=== PATIENT | female | born 1980 | race African-American/Black ===

== ENCOUNTER → 2020-09-24 | Outpatient (CLI) | payer OTHER | LOC: RAD 14:59 | PROVIDERS: ATTEND Family Medicine | DX: M79.89 Other specified soft tissue disorders (principal) ==

== ENCOUNTER 2020-12-26 16:50 | Emergency (ER) | payer OTHER ==
[~2020-12-26] VITALS: Ht 162.6 cm; Wt 104.3 kg
[2020-12-26] MEDS ORDERED: OMEPRAZOLE40 MG PO (17:23)
[2020-12-26] MEDS ORDERED: VITAMIN D21250 MCG PO (17:24)
[2020-12-26] MEDS ORDERED: PROAIR HFA8.5 GM INH (17:24)
[2020-12-26] MEDS ORDERED: ALPRAZOLAM 0.0.25 M1 PO (17:24)
[2020-12-26] MEDS ORDERED: FLUOXETINE HCL40 MG PO (17:24)
[2020-12-26 17:40] LABS: URINE BILIRUBIN NEGATIVE (Negative); URINE BLOOD 3+ (Negative); URINE CLARITY CLEAR; URINE COLOR YELLOW; URINE GLUCOSE-RANDOM* NEGATIVE (Negative); URINE KETONES NEGATIVE (Negative); URINE LEUKOCYTES-REFLEX NEGATIVE (Negative); URINE NITRITE-REFLEX NEGATIVE (Negative); URINE PROTEIN (DIPSTICK) NEGATIVE (Negative); URINE UROBILINOGEN 0.2 E.U./dl (0.2-1.0)
[2020-12-26 17:50] LABS: CASTS None Seen /LPF (None Seen); SQUAMOUS 4-10 Moderate /LPF (0-3)
[2020-12-26 17:51] LABS: BACTERIA-REFLEX None Seen /HPF (None Seen); CRYSTALS None Seen /LPF (None Seen); URINE RBC 3-10 Few /HPF (NONE SEEN); URINE WBC-REFLEX 0-5 Rare /HPF (0-5)
[2020-12-26 18:27] LABS: ABSOLUTE NEUTROPHILS 3.2 thou/uL (1.4-8.2); EOSINOPHILS 2.8 % (0.0-3.0); HEMATOCRIT 33.2 % (37.0-47.0); HEMOGLOBIN 11.5 gm/dL (12.0-15.0); MCH 36.5 pg (26.0-34.0); MCHC 34.6 g/dL (28.0-37.0); MCV 105.3 fL (80.0-100.0); MONOCYTES 10.9 % (1.0-8.0); PLATELET COUNT 291 thou/uL (150-400); POLYS 52.3 % (36.0-66.0); RBC 3.15 mil/uL (4.20-5.00); WBC 6.2 thou/uL (4.0-11.0)
[2020-12-26 18:47] LABS: CALCIUM 8.7 mg/dL (8.5-10.1); POTASSIUM 3.6 mmol/L (3.5-5.1)
[2020-12-26] MEDS ORDERED: FEOSOL325 M1 PO (18:51)
[2020-12-26 18:53] LABS: ALBUMIN 3.4 g/dL (3.4-5.0); TOTAL BILIRUBIN 0.5 mg/dL (0.2-1.0); TOTAL PROTEIN 7.1 g/dL (6.4-8.2)
[2020-12-26 20:56] VITALS: BP 142/93
== END 2020-12-26 20:57 | disposition home or self-care (01) ==
LOC: ER 16:50
PROVIDERS: Physician Assistant
DX: N93.9 Abnormal uterine and vaginal bleeding, unspecified (principal); D64.9 Anemia, unspecified; J45.909 Unspecified asthma, uncomplicated; F41.9 Anxiety disorder, unspecified; F32.9 Major depressive disorder, single episode, unspecified; K21.9 Gastro-esophageal reflux disease without esophagitis; Z79.51 Long term (current) use of inhaled steroids; Z79.1 Long term (current) use of non-steroidal anti-inflammatories (NSAID); Z79.891 Long term (current) use of opiate analgesic; Z79.899 Other long term (current) drug therapy